=== PATIENT | female | born 1995 | race Two or more races ===

== ENCOUNTER 2018-12-23 16:38 | Emergency (ER) | payer BC, OTHER ==
[2018-12-23 16:45] VITALS: BP 121/76
[2018-12-23] MEDS ORDERED: PREDNISONE 20 MG TABLET PO ONE (16:58)
[2018-12-23] MEDS ORDERED: IPRATROPIUM/ALBUTEROL 0.5-2.5 MG/3 ML AMPUL NEB ONE (16:58)
--- NOTE | 2018-12-23 17:01 | ER Document Report ---
ED Respiratory Problem - General Chief Complaint: Asthma Exacerbation Stated Complaint: DIFFICULTY BREATHING Time Seen by Provider: 12/23/18 16:52 Mode of Arrival: Ambulatory Information source: Patient Notes: 23-year-old female asthmatic reports waking up with shortness of breath and wheezing last night. She used her inhaler several times. It would help when she used it but the wheezing would return. Last time she was on prednisone was a few months ago when she was seen at an urgent care. There is been no fever, there is minimal cough. TRAVEL OUTSIDE OF THE [place] IN LAST 30 DAYS: No - Related Data Allergies/Adverse Reactions: No Known Allergies Allergy (Unverified 12/23/18 16:42) Past Medical History - General Information source: Patient - Social History Smoking Status: Never Smoker Cigarette use (# per day): No Chew tobacco use (# tins/day): No Smoking Education Provided: No Frequency of alcohol use: Social Drug Abuse: None Lives with: Spouse/Significant other Family History: Reviewed & Not Pertinent Patient has suicidal ideation: No Patient has homicidal ideation: No - Past Medical History Cardiac Medical History: Reports: None Pulmonary Medical History: Reports: Hx Asthma EENT Medical History: Reports: None Neurological Medical History: Reports: Hx Migraine Endocrine Medical History: Reports: None Renal/ Medical History: Reports: None GI Medical History: Reports: None Musculoskeletal Medical History: Reports None Skin Medical History: Reports None Psychiatric Medical History: Reports: None Surgical Hx: Negative Review of Systems - Review of Systems Constitutional: No symptoms reported EENT: No symptoms reported Cardiovascular: No symptoms reported Respiratory: Short of breath, Wheezing Gastrointestinal: No symptoms reported Genitourinary: No symptoms reported Female Genitourinary: No symptoms reported - Patient is on control pills Musculoskeletal: No symptoms reported Skin: No symptoms reported Hematologic/Lymphatic: No symptoms reported Neurological/Psychological: No symptoms reported Physical Exam - Vital signs Vitals: Temp Pulse Resp BP Pulse Ox 98.4 F 118 H 20 121/76 96 12/23/18 16:44 12/23/18 16:44 12/23/18 16:44 12/23/18 16:44 12/23/18 16:44 - Notes Notes: PHYSICAL EXAMINATION: GENERAL: Well-appearing, well-nourished and in no acute distress. HEAD: Atraumatic, normocephalic. EYES: Pupils equal round and reactive to light, extraocular movements intact, sclera anicteric, conjunctiva are normal. ENT: nares patent, oropharynx clear without exudates. Moist mucous membranes. NECK: Normal range of motion, supple without lymphadenopathy LUNGS: Patient has expiratory wheezes, no rhonchi when I have her cough. There is no retracting. HEART: Regular rate and rhythm without murmurs. She is a little tachycardic. ABDOMEN: Soft, nontender, normoactive bowel sounds. No guarding, no rebound. No masses appreciated. EXTREMITIES: Normal range of motion, no pitting or edema. No cyanosis. NEUROLOGICAL: Cranial nerves grossly intact. Normal speech, normal gait. Normal sensory, motor, and reflex exams. PSYCH: Normal mood, normal affect. SKIN: Warm, Dry, normal turgor, no rashes or lesions noted. Course - Re-evaluation Re-evalutation: 12/23/18 18:16 After the breathing treatments patient states that she feels much better. Lungs are essentially clear now. She states that she does have plenty of her inhaler medication at home. I informed her that over the next several hours the prednisone will start working and that will also help with the wheezing. She is going to follow-up with her primary care provider and talk with him about possibility of having a nebulizer machine at home to manage episodes like this 1 without having to come to the emergency room. - Vital Signs Vital signs: Temp Pulse Resp BP Pulse Ox 98.4 F 118 H 18 121/76 96 12/23/18 16:44 12/23/18 16:44 12/23/18 16:49 12/23/18 16:44 12/23/18 16:44 Discharge - Discharge Clinical Impression: Acute exacerbation of extrinsic asthma Condition: Stable Disposition: HOME, SELF-CARE Additional Instructions: Start the prednisone as prescribed tomorrow--you were given today's dose here in the emergency room. Use your inhaler every 4 hours today, and then as needed tomorrow. Be sure to drink plenty of fluids today and this evening. Follow-up with your primary care provider this week for recheck and to discuss getting a nebulizer machine to have home. RETURN TO THE EMERGENCY ROOM IF ANY NEW OR WORSENING SYMPTOMS. Prescriptions: Prednisone [Deltasone 10 mg Tablet] 10 mg PO ASDIR PRN #21 tablet PRN Reason:
[2018-12-23] MEDS ORDERED: ALBUTEROL SULFATE 0.083% NEB 2.5 MG/3 ML AMPUL NEB ONE (17:10)
== END 2018-12-23 18:25 | disposition home or self-care (01) ==
LOC: ER 16:38
DX: J45.901 Unspecified asthma with (acute) exacerbation (principal)
CPT/HCPCS: 94640 ×2; 99284; J7512; J7620